=== PATIENT | male | born 1995 | race Caucasian/White ===

== ENCOUNTER 2017-05-20 18:23 | Inpatient (IN) | payer BC, OTHER ==
[~2017-05-20] VITALS: Ht 182.9 cm; Wt 86.1 kg
[2017-05-20 19:17] VITALS: BP 156/72; PULSE 100; RESP 16; TEMP 97.5; O2SAT 95
[2017-05-20] MEDS ORDERED: SODIUM CHLOR 0.9% 1000 ML INJ 1,000 ML IV ONE (19:30)
--- NOTE | 2017-05-20 19:45 | PD ---
HPI Chief Complaint: Psychiatric Symptoms Time Seen by Provider: 19:22 Travel History International Travel<30 days: No Contact w/Intl Traveler<30days: No Traveled to known affect area: No History of Present Illness HPI Patient is a 21-year-old male brought into the emergency Department under Baltazar act for abnormal behavior. According to Baltazar act patient has been acting erratically, it appeared that he was discharging the balcony on the for an father had to restrain him in fear that he was going to jump off. Patient states that [place] talking to strangers some people were full of love and some were full of hate. According to the Baltazar act report patient referenced himself as being the next Savior. Patient denies any physical complaints, he denies any visual auditory hallucinations. He does endorse marijuana use, I states he smoked half of a joint this morning. He denies any other drug use. Denies any previous suicide attempt or psychiatric history. He states that he is on the [employer] list in college. [facility] Past Medical History Medical History: Denies Significant Hx Tetanus Vaccination: < 5 Years Influenza Vaccination: No Past Surgical History Surgical History: No Previous Surgery Social History Alcohol Use: Yes (3 beer yesterday, occu) Tobacco Use: No Substance Use: Yes (marijuanna 3x a week, smoke today) Allergies-Medications (Allergen,Severity, Reaction): Coded Allergies: No Known Allergies (Unverified , 05/20/17) Review of Systems Except as stated in HPI: all other systems reviewed are Neg Skin: Positive Change in Pigmentation (sunburn) Psychiatric: Positive: Disorder of Thought, Mood Disorder, Substance Abuse Physical Exam Narrative GENERAL: Well-developed, well-nourished, alert male. Resting in no acute distress. SKIN: Warm and dry. Superficial sunburn to bilateral upper extremities and face. HEAD: Atraumatic. Normocephalic. EYES: Pupils equal and round. No scleral icterus. No injection or drainage. ENT: No nasal bleeding or discharge. Mucous membranes pink and moist. NECK: Trachea midline. No JVD. CARDIOVASCULAR: Tachycardic RESPIRATORY: No accessory muscle use. Clear to auscultation. Breath sounds equal bilaterally. GASTROINTESTINAL: Abdomen soft, non-tender, nondistended. Hepatic and splenic margins not palpable. MUSCULOSKELETAL: Extremities without clubbing, cyanosis, or edema. No obvious deformities. NEUROLOGICAL: Awake and alert. No obvious cranial nerve deficits. Motor grossly within normal limits. Five out of 5 muscle strength in the arms and legs. Normal speech. PSYCHIATRIC: Appropriate mood and affect; insight and judgment normal. Data Data Last Documented VS Vital Signs Date Time Temp Pulse Resp B/P Pulse Ox O2 Delivery O2 Flow Rate FiO2 05/20/17 19:17 97.5 100 16 156/72 95 Orders Complete Blood Count With Diff (05/20/17 19:21) Comprehensive Metabolic Panel (05/20/17 19:21) Psych Screen (05/20/17 19:21) Drug Screen, Random Urine (05/20/17 19:21) Alcohol (Ethanol) (05/20/17 19:21) Salicylates (Aspirin) (05/20/17 19:21) Tylenol (Acetaminophen) (05/20/17 19:21) Iv Access Insert/Monitor (05/20/17 19:23) Sodium Chlor 0.9% 1000 Ml Inj (Ns 1000 M (05/20/17 19:30) Creatine Kinase (Cpk) (05/20/17 19:35) CKMB (05/20/17 19:35) CKMB% (05/20/17 19:35) Labs Laboratory Tests Test 05/20/17 05/20/17 19:35 19:40 White Blood Count 12.8 TH/MM3 Red Blood Count 5.33 MIL/MM3 Hemoglobin 16.8 GM/DL Hematocrit 49.4 % Mean Corpuscular Volume 92.6 FL Mean Corpuscular Hemoglobin 31.5 PG Mean Corpuscular Hemoglobin 34.0 % Concent Red Cell Distribution Width 12.9 % Platelet Count 236 TH/MM3 Mean Platelet Volume 10.3 FL Neutrophils (%) (Auto) 82.7 % Lymphocytes (%) (Auto) 10.7 % Monocytes (%) (Auto) 6.2 % Eosinophils (%) (Auto) 0.0 % Basophils (%) (Auto) 0.4 % Neutrophils # (Auto) 10.5 TH/MM3 Lymphocytes # (Auto) 1.4 TH/MM3 Monocytes # (Auto) 0.8 TH/MM3 Eosinophils # (Auto) 0.0 TH/MM3 Basophils # (Auto) 0.1 TH/MM3 CBC Comment DIFF FINAL Differential Comment Sodium Level 141 MEQ/L Potassium Level 3.9 MEQ/L Chloride Level 108 MEQ/L Carbon Dioxide Level 24.5 MEQ/L Anion Gap 9 MEQ/L Blood Urea Nitrogen 16 MG/DL Creatinine 1.28 MG/DL Estimat Glomerular Filtration 72 ML/MIN Rate Random Glucose 115 MG/DL Calcium Level 9.5 MG/DL Total Bilirubin 0.5 MG/DL Aspartate Amino Transf 37 U/L (AST/SGOT) Alanine Aminotransferase 29 U/L (ALT/SGPT) Alkaline Phosphatase 89 U/L Total Creatine Kinase 867 U/L Total Protein 7.9 GM/DL Albumin 4.0 GM/DL Salicylates Level 1.8 MG/DL Acetaminophen Level LESS THAN 2.0 MCG/ML Ethyl Alcohol Level LESS THAN 3 MG/DL Urine Opiates Screen NEG Urine Barbiturates Screen NEG Urine Amphetamines Screen NEG Urine Benzodiazepines Screen NEG Urine Cocaine Screen NEG Urine Cannabinoids Screen POS MDM Medical Decision Making Medical Screen Exam Complete: Yes Emergency Medical Condition: Yes Interpretation(s) Vital Signs Date Time Temp Pulse Resp B/P Pulse Ox O2 Delivery O2 Flow Rate FiO2 05/20/17 19:17 97.5 100 16 156/72 95 Laboratory Tests Test 05/20/17 05/20/17 19:35 19:40 White Blood Count 12.8 TH/MM3 Red Blood Count 5.33 MIL/MM3 Hemoglobin 16.8 GM/DL Hematocrit 49.4 % Mean Corpuscular Volume 92.6 FL Mean Corpuscular Hemoglobin 31.5 PG Mean Corpuscular Hemoglobin 34.0 % Concent Red Cell Distribution Width 12.9 % Platelet Count 236 TH/MM3 Mean Platelet Volume 10.3 FL Neutrophils (%) (Auto) 82.7 % Lymphocytes (%) (Auto) 10.7 % Monocytes (%) (Auto) 6.2 % Eosinophils (%) (Auto) 0.0 % Basophils (%) (Auto) 0.4 % Neutrophils # (Auto) 10.5 TH/MM3 Lymphocytes # (Auto) 1.4 TH/MM3 Monocytes # (Auto) 0.8 TH/MM3 Eosinophils # (Auto) 0.0 TH/MM3 Basophils # (Auto) 0.1 TH/MM3 CBC Comment DIFF FINAL Differential Comment Sodium Level 141 MEQ/L Potassium Level 3.9 MEQ/L Chloride Level 108 MEQ/L Carbon Dioxide Level 24.5 MEQ/L Anion Gap 9 MEQ/L Blood Urea Nitrogen 16 MG/DL Creatinine 1.28 MG/DL Estimat Glomerular Filtration 72 ML/MIN Rate Random Glucose 115 MG/DL Calcium Level 9.5 MG/DL Total Bilirubin 0.5 MG/DL Aspartate Amino Transf 37 U/L (AST/SGOT) Alanine Aminotransferase 29 U/L (ALT/SGPT) Alkaline Phosphatase 89 U/L Total Creatine Kinase 867 U/L Total Protein 7.9 GM/DL Albumin 4.0 GM/DL Salicylates Level 1.8 MG/DL Acetaminophen Level LESS THAN 2.0 MCG/ML Ethyl Alcohol Level LESS THAN 3 MG/DL Urine Opiates Screen NEG Urine Barbiturates Screen NEG Urine Amphetamines Screen NEG Urine Benzodiazepines Screen NEG Urine Cocaine Screen NEG Urine Cannabinoids Screen POS Vital Signs Date Time Temp Pulse Resp B/P Pulse Ox O2 Delivery O2 Flow Rate FiO2 05/20/17 19:17 97.5 100 16 156/72 95 Differential Diagnosis Mood disorder versus substance abuse versus metabolic disturbance versus psychosis Narrative Course Patient is a 21-year-old male that presented under Baltazar act due to abnormal behavior and potential threat to himself. Mental health screening discussed with the patient. Psychiatric screen ordered. Labs ordered and pending. Patient's vital signs are stable. CBC with a white count of 12.8 Chemistry is unremarkable CK elevated 867 Urine drug screen is positive for marijuana Salicylate, acetaminophen and alcohol level are unremarkable Patient was ordered 1 L of IV fluids, and oral fluid intake was encouraged. Patient was allowed call his mother, he then asked me to talk to her on the phone. Mother was informed on the psych screen process. Patient is medically clear for psychiatric evaluation at this time. Diagnosis Primary Impression: Medical clearance for psychiatric admission Condition: Stable Carlie Walters May 20, 2017 19:45
[2017-05-20 20:29] LABS: AUTOMATED NEUTROPHIL # 10.5 TH/MM3 (1.8-7.7); BASOPHIL # 0.1 TH/MM3 (0-0.2); BASOPHIL % 0.4 % (0.0-2.0); HEMATOCRIT 49.4 % (39.0-51.0); HEMO FLAGS DIFF FINAL; LYMPH % 10.7 % (9.0-44.0); LYMPHOCYTE # 1.4 TH/MM3 (1.0-4.8); MEAN CELL VOLUME 92.6 FL (80.0-100.0); MEAN CORPUSCULAR HEMOGLOBIN 31.5 PG (27.0-34.0); MONO % 6.2 % (0.0-8.0); NEUT % 82.7 % (16.0-70.0); PLATELET COUNT 236 TH/MM3 (150-450); RED BLOOD COUNT 5.33 MIL/MM3 (4.50-5.90); RED CELL DISTRIBUTION WIDTH 12.9 % (11.6-17.2); WHITE BLOOD COUNT 12.8 TH/MM3 (4.0-11.0)
[2017-05-20 20:31] LABS: AMPHETAMINE, URINE NEG (NEG); BARBITURATES, URINE NEG (NEG); COCAINE, URINE NEG (NEG)
[2017-05-20 20:40] LABS: ANION GAP 9 MEQ/L (5-15); AST (GOT) 37 U/L (15-39); BICARBONATE 24.5 MEQ/L (21.0-32.0); BLOOD UREA NITROGEN 16 MG/DL (7-18); CHLORIDE 108 MEQ/L (98-107); GLOMERULAR FILTRATION RATE 72 ML/MIN (>89); POTASSIUM 3.9 MEQ/L (3.5-5.1); SODIUM (NA) 141 MEQ/L (136-145)
[2017-05-20 20:41] LABS: ALT (GPT) 29 U/L (9-52)
[2017-05-20 20:43] LABS: ALKALINE PHOSPHATASE 89 U/L (45-117); TOTAL BILIRUBIN ADULT 0.5 MG/DL (0.2-1.0)
[2017-05-20 20:58] LABS: ACETAMINOPHEN LESS THAN 2.0 MCG/ML (10.0-30.0)
[2017-05-20 21:57] LABS: CREATINE KINASE 867 U/L (39-308)
[2017-05-20 22:14] VITALS: PULSE 90; RESP 18; O2SAT 97
[2017-05-20 22:34] LABS: CKMB 1.1 NG/ML (0.5-3.6)
--- NOTE | 2017-05-20 22:47 | PD ---
Data Data Last Documented VS Vital Signs Date Time Temp Pulse Resp B/P Pulse Ox O2 Delivery O2 Flow Rate FiO2 05/21/17 00:16 88 18 154/77 98 Room Air 05/20/17 19:17 97.5 Orders Complete Blood Count With Diff (05/20/17 19:21) Comprehensive Metabolic Panel (05/20/17 19:21) Psych Screen (05/20/17 19:21) Drug Screen, Random Urine (05/20/17 19:21) Alcohol (Ethanol) (05/20/17 19:21) Salicylates (Aspirin) (05/20/17 19:21) Tylenol (Acetaminophen) (05/20/17 19:21) Iv Access Insert/Monitor (05/20/17 19:23) Sodium Chlor 0.9% 1000 Ml Inj (Ns 1000 M (05/20/17 19:30) Creatine Kinase (Cpk) (05/20/17 19:35) CKMB (05/20/17 19:35) CKMB% (05/20/17 19:35) Labs Laboratory Tests Test 05/20/17 05/20/17 19:35 19:40 White Blood Count 12.8 TH/MM3 Red Blood Count 5.33 MIL/MM3 Hemoglobin 16.8 GM/DL Hematocrit 49.4 % Mean Corpuscular Volume 92.6 FL Mean Corpuscular Hemoglobin 31.5 PG Mean Corpuscular Hemoglobin 34.0 % Concent Red Cell Distribution Width 12.9 % Platelet Count 236 TH/MM3 Mean Platelet Volume 10.3 FL Neutrophils (%) (Auto) 82.7 % Lymphocytes (%) (Auto) 10.7 % Monocytes (%) (Auto) 6.2 % Eosinophils (%) (Auto) 0.0 % Basophils (%) (Auto) 0.4 % Neutrophils # (Auto) 10.5 TH/MM3 Lymphocytes # (Auto) 1.4 TH/MM3 Monocytes # (Auto) 0.8 TH/MM3 Eosinophils # (Auto) 0.0 TH/MM3 Basophils # (Auto) 0.1 TH/MM3 CBC Comment DIFF FINAL Differential Comment Sodium Level 141 MEQ/L Potassium Level 3.9 MEQ/L Chloride Level 108 MEQ/L Carbon Dioxide Level 24.5 MEQ/L Anion Gap 9 MEQ/L Blood Urea Nitrogen 16 MG/DL Creatinine 1.28 MG/DL Estimat Glomerular Filtration 72 ML/MIN Rate Random Glucose 115 MG/DL Calcium Level 9.5 MG/DL Total Bilirubin 0.5 MG/DL Aspartate Amino Transf 37 U/L (AST/SGOT) Alanine Aminotransferase 29 U/L (ALT/SGPT) Alkaline Phosphatase 89 U/L Total Creatine Kinase 867 U/L Creatine Kinase MB 1.1 NG/ML Creatine Kinase MB % 0.1 % Total Protein 7.9 GM/DL Albumin 4.0 GM/DL Salicylates Level 1.8 MG/DL Acetaminophen Level LESS THAN 2.0 MCG/ML Ethyl Alcohol Level LESS THAN 3 MG/DL Urine Opiates Screen NEG Urine Barbiturates Screen NEG Urine Amphetamines Screen NEG Urine Benzodiazepines Screen NEG Urine Cocaine Screen NEG Urine Cannabinoids Screen POS MDM Supervised Visit with ANIKA: Yes Narrative Course I, Dr. Weinstein have reviewed the advance practice practitioner's documentation and am in agreement, met with the patient face to face, made the diagnosis, and the medical decision making was done by me. *My assessment and Findings: Patient is a 21-year-old male certainly has heightened sense of awareness as bordering on agitated has been standing at the window of his door all night staring at us asking when he was able to leave. He has fairly poor understanding of why he slipped here. I read the Baltazar act to him and he states that we were lying on the Baltazar act. When explained that it was his mother who had him Baltazar acted he denies it. He states that we can hold him here against his will. I've reviewed the Baltazar act and apparently his father had to restrain him from jumping off a balcony tonight. He has previously been cleared medically by Carlie Walters, I explained to him that he is under Baltazar act and will be here until such times a psychiatrist as deemed him stable for discharge. His differential diagnosis includes schizophrenic onset versus agitated delirium secondary to substance abuse. He remains medically stable for psychiatric evaluation and disposition and we will restrain and sedate him as necessary however that has not been necessary at the time of this note. Diagnosis Primary Impression: Medical clearance for psychiatric admission Condition: Jaziel Armando MD May 20, 2017 22:47
[2017-05-21 00:16] VITALS: BP 154/77; PULSE 88; RESP 18; O2SAT 98
[2017-05-21 10:25] VITALS: BP 166/82; PULSE 80; RESP 20; O2SAT 98
[2017-05-21 11:28] VITALS: BP 164/106; PULSE 102; RESP 19; TEMP 98.8; O2SAT 98
[2017-05-21] MEDS ORDERED: OLANZapine IM 10 MG VIAL IM ONE ×2 (11:50→13:00)
[2017-05-21] MEDS ORDERED: LORazepam 2 MG/ML VIAL IM PRN (13:30)
[2017-05-21] MEDS ORDERED: MAGNESIUM HYDROXIDE SUSP 30 ML CUP PO PRN (13:30)
[2017-05-21] MEDS ORDERED: ALUMINUM/MAGNESIUM/SIMETH 30 ML CUP PO PRN (13:30)
[2017-05-21] MEDS ORDERED: diphenhydrAMINE HCL 50 MG/ML VIAL - HS PRN IM (13:30)
[2017-05-21] MEDS ORDERED: LORazepam 1 MG TAB PO PRN (13:30)
[2017-05-21] MEDS ORDERED: ACETAMINOPHEN 325 MG TAB PO PRN (13:30)
[2017-05-21] MEDS ORDERED: diphenhydrAMINE HCL 50 MG CAP - HS PRN PO (13:30)
[2017-05-21] MEDS ORDERED: REMOVE OLD NICOTINE PATCH T-DERMAL SCH (21:00)
[2017-05-22 06:16] VITALS: BP 147/93; PULSE 86; RESP 18; TEMP 97.6
[2017-05-22] MEDS ORDERED: NICOTINE 21 MG/24 HR PATCH T-DERMAL SCH (09:00)
--- NOTE | 2017-05-22 12:54 | HHI.HP ---
Provisional Diagnosis Admission Date May 21, 2017 at 09:46 [place] I. Adjustment disorder with mixed disturbances of emotion and conduct 43.25, marijuana abuse of 12.10 Certification of Person's Competence To Provide Express and Informed Consent I have personally examined Yandel Suarez , a person being served at [facility] on, May 22, 2017 12:41. Express and informed consent means consent voluntarily given in writing, by a competent person, after sufficient explanation and disclosure of the subject matter involved to enable the person to make a knowing and willful decision without any element of force, fraud, deceit, duress, or other form of constraint or coercion. This person is 18 years of age or older, is not now known to be incompetent to consent to treatment with a guardian advocate, and does not have a health care surrogate or proxy currently making medical treatment decisions. I have found this person to be one of the following: [xx] Competent to provide express and informed consent, as defined above, for voluntary admission to this facility and is competent to provide express and informed consent for treatment. He/she has the consistent capacity to make well reasoned, willful, and knowing decisions concerning his or her medical or mental health treatment. The person fully and consistently understands the purpose of the admission for examination/placement and is fully capable of personally exercising all rights assured [place] Incompetent to provide express and informed consent to voluntary admission, and this is incompetent to provide express and informed consent to treatment. The person must be transferred to involuntary status and a petition for a guardian advocate filed with the Circuit Court. [] Refusing to provide express and informed consent to voluntary admission but is competent to provide express and informed consent for treatment. The person must be discharged or transferred to involuntary status. Form shall be completed within 24 hours of a person's arrival at the receiving facility and filed in the clinical record of each person: 1. Admitted on a voluntary basis 2. Permitted to provide express and informed consent to his/her own treatment 3. Allowed to transfer from involuntary to voluntary status 4. Prior to permitting a person to consent to his or her own treatment after having been previously found incompetent to consent to treatment. History of Present Illness Capacity: Has Capacity HPI Patient is a 21-year-old white male who comes here under Baltazar act by the [place] [employer] dated 05/20/17 1802 hrs. Integument reviewed and agreed with. Basically stating that Erick was in his hotel room with his parents and his brother Boris mother said he has not slept much in the last 3 days and he has been acting irrational. Erick has been talking about the "end of days" and believes she can be the next savior. Erick was not aggressive with his family but he was easily irritated. Once we arrived on scene Erick was restrained by his father because he began charging towards the [employer] ( for) and was afraid is going to jump. Erick advised he smoked weed this morning and that he also had some alcohol. There is a likelihood that without care or treatment Erick will cause great bodily harm to himself area. Patient seen screened in the ED, urine toxicology positive for marijuana, negative blood alcohol level. Patient seen in his room on 2600 with counselor Niko. Patient is alert oriented white male blond hair in small ponytail. Stating he list [facility] is vacationing down here with his mother father and older brother and older brother's girlfriend. They've been [place] for about 3 days. He stated he did not sleep for the first few days, then he has been using alcohol occasionally been using marijuana occasionally. Acknowledges using marijuana and [place] also. He appears to have a spotty memory was behaviors. Is also minimizing his behaviors and focusing on his relationship with his father, who he states also has a history of substance abuse. In any event at the present time patient denies suicidality homicidality voices or visions. Denies any prior psychiatric contact hospitalization his psychotropic medications. He states that only other drug uses besides marijuana and alcohol is 1 trowel with cocaine a few months ago. He states is in college at the present time. He denies any physical or sexual abuse. There is a history of substance issues with his father. At this time patient does not meet Baltazar act criteria I will lift Baltazar act. I did talk with patient's mother on the phone. She feels she is stable and does wish for the discharged her care today significant joint remainder of the medication. I agree with that. The been no Rx by me. I made strong recommendation to Yandel that he observe strict abstinence. I also mentioned to mother that if things do get out of control she may call the police her wellness check her return him to our emergency department for further psychiatric assessment Review of Systems Constitutional: DENIES: Diaphoretic episodes, Fatigue, Fever, Weight gain, Weight loss, Chills, Dizziness, Change in appetite, Night Sweats Endocrine: DENIES: Heat/cold intolerance, Polydipsia, Polyuria, Polyphagia Eyes: DENIES: Blurred vision, Diplopia, Eye inflammation, Eye pain, Vision loss , Photosensitivity, Double Vision Ears, nose, mouth, throat: DENIES: Tinnitus, Hearing loss, Vertigo, Nasal discharge, Oral lesions, Throat pain, Hoarseness, Ear Pain, Running Nose, Epistaxis, Sinus Pain, Toothache, Odynophagia Respiratory: DENIES: Apneas, Cough, Snoring, Wheezing, Hemoptysis, Sputum production, Shortness of breath Cardiovascular: DENIES: Chest pain, Palpitations, Syncope, Dyspnea on Exertion , PND, Lower Extremity Edema, Orthopnea, Claudication Gastrointestinal: DENIES: Abdominal pain, Black stools, Bloody stools, Constipation, Diarrhea, Nausea, Vomiting, Difficulty Swallowing, Anorexia Genitourinary: DENIES: Sexual dysfunction, Urinary frequency, Urinary incontinence, Urgency, Hematuria, Dysuria, Nocturia, Penile Discharge, Testicular Pain, Testicular Swelling Musculoskeletal: DENIES: Joint pain, Muscle aches, Stiffness, Joint Swelling, Back pain, Neck pain Integumentary: DENIES: Abnormal pigmentation, Nail changes, Pruritus, Rash Hematologic/lymphatic: DENIES: Bruising, Lymphadenopathy Immunologic/allergic: DENIES: Eczema, Urticaria Neurologic: DENIES: Abnormal gait, Headache, Localized weakness, Paresthesias, Seizures, Speech Problems, Tremor, Poor Balance Psychiatric: DENIES: Anxiety, Confusion, Mood changes, Depression, Hallucinations, Agitation, Suicidal Ideation, Homicidal Ideation, Delusions Past Psych History Psychological trauma history Denies Violence risk - others (6 mos) Low Violence risk - self (6 mos) Low Substance Abuse History Drugs/Alcohol past 12 months Active marijuana user occasional alcohol user Past Family Social History Coded Allergies: No Known Allergies (Unverified , 05/20/17) Past Medical History Nonspecific Current Medications Medications (Trade) Dose Ordered Sig/Osmin Route Start Time Stop Time Status Last Admin (Ativan) 1 mg Q6H PRN PO 05/21/17 13:30 Hold (Ativan Inj) 1 mg Q6H PRN IM 05/21/17 13:30 Hold (Benadryl) 50 mg HS PRN PO 05/21/17 13:30 (Benadryl Inj) 50 mg HS PRN IM 05/21/17 13:30 (Tylenol) 650 mg Q4H PRN PO 05/21/17 13:30 (Milk Of Magnesia Liq) 30 ml DAILY PRN PO 05/21/17 13:30 (Mag-Al Plus Susp Liq) 30 ml Q6H PRN PO 05/21/17 13:30 (Habitrol 21 Mg Patch.24 Hr) 1 patch DAILY T-DERMAL 05/22/17 09:00 Miscellaneous Information 1 HS T-DERMAL 05/21/17 21:00 Family History Father history of substance abuse issues Social History Patient single and college is no girlfriend at the present time Patient's Strengths (min. 2) Patient young verbal cooperative Physical Exam Patient seen screened in ED exam reviewed and agreed with patient sitting quietly in his room he is in no acute distress, neck is supple is in no respiratory distress, no complaints of abdominal pain, patient with you all 4 extremities without difficulty, no abnormal motor movements noted Vital Signs Vital Signs Date Time Temp Pulse Resp B/P Pulse Ox O2 Delivery O2 Flow Rate FiO2 05/22/17 06:16 97.6 86 18 147/93 05/21/17 11:28 98 05/21/17 10:25 Room Air Mental Status Examination Alert oriented weight male, he is normal active, mood is euthymic with good range intensity of his affect, speech rate and rhythm are within normal limits though no formal thought disorders, no auditory or visual hallucinations, no delusions, insight injections fair, cognition grossly intact Appearance Clean neatly Speech: Unremarkable Orientation: x3 Memory: Unremarkable Thought Process: Logical, Organized Thought Content: Unremarkable Language Fair Fund of Knowledge Good Hallucination Type: None Attention and Concentration: Good Suicidal Ideation: No Previous Suicide Attempts: No Homicidal Ideation: No Previous Homicide Attempts: No Insight: Poor Judgment: Poor Affect: Other (good range of motion intensity) Mood: Euthymic Motor Activity: Normal gait Assessment & Plan Problem List: (1) Marijuana abuse ICD Code: F12.10 (2) Adjustment disorder with mixed disturbance of emotions and conduct ICD Code: F43.25 Assessment & Plan Estimated LOS: days patient does not meet Baltazar criteria will lift Baltazar act. Patient be discharged to his family, no Rx by me, strong recommendation absolute abstinence follow-up with his PCP in [facility] are more behaviors recur me follow-up throughout her ED and psychiatric screeners Discharge Planning See above Request HC Surrog/Guard Advoc?: No Panda Pope MD May 22, 2017 12:54
--- NOTE | 2017-05-22 12:58 | HHI.DS ---
Psychiatry Discharge Summary Inpatient Psychiatric care?: Yes Advance Directive: No Reason Not Provided: DOES NOT HAVE Mental Health AdvanceDirective: No Health Care Proxy: No Admission Admission Date May 21, 2017 at 09:46 Admission Diagnosis: (1) Marijuana abuse ICD Code: F12.10 (2) Adjustment disorder with mixed disturbance of emotions and conduct ICD Code: F43.25 Brief History Patient is a 21-year-old white male who comes here under Baltazar act by the [employer] dated 05/20/17 1802 hrs. Integument reviewed and agreed with. Basically stating that Erick was in his hotel room with his parents and his brother Boris mother said he has not slept much in the last 3 days and he has been acting irrational. Erick has been talking about the "end of days" and believes she can be the next savior. Erick was not aggressive with his family but he was easily irritated. Once we arrived on scene Erick was restrained by his father because he began [facility] and was afraid is going to jump. Erick advised he smoked weed this morning and that he also had some alcohol. There is a likelihood that without care or treatment Erick will cause great bodily harm to himself area. Patient seen screened in the ED, urine toxicology positive for marijuana, negative blood alcohol level. Patient seen in his room on 2600 with counselor Niko. Patient is alert oriented white male blond hair in small ponytail. Stating he list [facility] is vacationing down here with his mother father and older brother and older brother's girlfriend. They've been [place] for about 3 days. He stated he did not sleep for the first few days, then he has been using alcohol occasionally been using marijuana occasionally. Acknowledges using marijuana and [place] also. He appears to have a spotty memory was behaviors. Is also minimizing his behaviors and focusing on his relationship with his father, who he states also has a history of substance abuse. In any event at the present time patient denies suicidality homicidality voices or visions. Denies any prior psychiatric contact hospitalization his psychotropic medications. He states that only other drug uses besides marijuana and alcohol is 1 trowel with cocaine a few months ago. He states is in college at the present time. He denies any physical or sexual abuse. There is a history of substance issues with his father. At this time patient does not meet Baltazar act criteria I will lift Baltazar act. I did talk with patient's mother on the phone. She feels she is stable and does wish for the discharged her care today significant joint remainder of the medication. I agree with that. The been no Rx by me. I made strong recommendation to Yandel that he observe strict abstinence. I also mentioned to mother that if things do get out of control she may call the police her wellness check her return him to our emergency department for further psychiatric assessment Tobacco Use In Past 30 Days: 5 or More Cigarettes/Day Alcohol Use: Never Hospital Course Please see note under brief history. Patient does not meet Baltazar criteria will lift Baltazar act. Patient to be discharged from his family. No Rx by me. A follow-up with [facility] ED psychiatric screeners if issues develop. Follow-up with PCP in [facility]. Absolute abstinence Results Blood Pressure 147 / 93 Vital Signs Date Time Temp Pulse Resp B/P Pulse Ox O2 Delivery O2 Flow Rate FiO2 05/22/17 06:16 97.6 86 18 147/93 05/21/17 11:28 98 05/21/17 10:25 Room Air Laboratory Tests Test 05/20/17 05/20/17 19:35 19:40 White Blood Count 12.8 TH/MM3 (4.0-11.0) Neutrophils (%) (Auto) 82.7 % (16.0-70.0) Neutrophils # (Auto) 10.5 TH/MM3 (1.8-7.7) Chloride Level 108 MEQ/L (98-107) Estimat Glomerular Filtration 72 ML/MIN (>89) Rate Random Glucose 115 MG/DL (74-106) Total Creatine Kinase 867 U/L (39-308) Salicylates Level 1.8 MG/DL (2.8-20.0) Acetaminophen Level LESS THAN 2.0 MCG/ML (10.0-30.0) Urine Cannabinoids Screen POS (NEG) Summary of Procedures None done Pending results at discharge: No Medications # of Antipsychotic meds at D/C: 0 Approp Antipsych med options 1 - Minimum of three failed multiple trials of monotherapy. 2 - Documented plan to taper to monotherapy due to previous use of multiple meds OR cross-taper in progress at D/C. 3 - Documentation of augmentation of Clozapine. 4 - Justification other than those listed in allowable values 1-3, document here : Discharge Discharge Date: May 22, 2017 Discharge Diagnosis: (1) Marijuana abuse Diagnosis: Secondary ICD Code: F12.10 (2) Adjustment disorder with mixed disturbance of emotions and conduct Diagnosis: Principal ICD Code: F43.25 Mental Status Exam at Disch Alert oriented white male. He is normoactive. His mood is euthymic with good range and intensity of his affect. Speech rate and rhythm within normal limits though no formal thought disorders. No Auditory or visual hallucinations. No delusions noted. Insight and judgment is poor to fair. Cognition grossly intact Pt Condition on Discharge: Stable Discharge Disposition: Discharge Home Discharge Instructions Diet Instructions: As Tolerated, No Restrictions Activities you can perform: Regular-No Restrictions Scheduled Appointment: Out of town follow up Discharge Time > 30 minutes Discharge/Advance Care Plan Health Problems: (1) Marijuana abuse (2) Adjustment disorder with mixed disturbance of emotions and conduct Goals to promote your health * To prevent worsening of your condition and complications * To maintain your health at the optimal level Directions to meet your goals Take your medications as prescribed Follow your dietary instruction Follow activity as directed Keep your appointments as scheduled Take your immunizations and boosters as scheduled If your symptoms worsen call your PCP, if no PCP go to Urgent Care Center or Emergency Room For 19/05 questions related to your inpatient stay or results of tests pending at discharge, please contact Dr. Panda Pope at Smoking is Dangerous to Your Health. Avoid second hand smoking Panda Pope MD May 22, 2017 12:58
[2017-05-23] MEDS ORDERED: NICOTINE 21 MG/24 HR PATCH T-DERMAL SCH (09:00)
== END 2017-05-22 13:30 | disposition home or self-care (01) | DRG 897 ==
LOC: NEPD 18:23 → NEDA 05-21 09:46 → H260 05-21 11:29
PROVIDERS: ADMIT Psychiatry & Neurology Psychiatry; ATTEND Psychiatry & Neurology Psychiatry
DX: F12.10 Cannabis abuse, uncomplicated (principal); F43.25 Adjustment disorder with mixed disturbance of emotions and conduct
CPT/HCPCS: 80053; 80307; 82550; 82552; 85025